=== PATIENT | female | born 1975 | race Caucasian/White ===

== ENCOUNTER 2024-01-28 18:47 | Emergency (ER) | payer OTHER, SELFPAY ==
[2024-01-28 19:07] VITALS: BP 146/101; PULSE 86; PULSE 88; RESP 16; TEMP 36.4; O2SAT 94; BMI 45.3
--- NOTE | 2024-01-28 19:16 | EKG12_ITS ---
Test Reason : CP Blood Pressure : / mmHG Vent. Rate : 085 BPM Atrial Rate : 085 BPM P-R Int : 158 ms QRS Dur : 084 ms QT Int : 404 ms P-R-T Axes : 057 -07 030 degrees QTc Int : 480 ms Normal sinus rhythm Cannot rule out Anterior infarct , age undetermined Abnormal ECG Confirmed by Ananda Reina ([id number]), editor magazine SUZI MORROW ([id number]) on 01/29/2024 10:14:43 AM Referred By: Tera Hodgson Confirmed By:Ananda Reina
[2024-01-28 19:51] LABS: Absolute Lymphocyte Count 3.48 X10^3/uL (0.83-4.51); Absolute Neutrophil Count 7.5 X10^3/uL (2.0-7.7); Basophil# 0.03 X10^3/uL; Basophil% 0.3 % (0-1); Eosinophil# 0.15 X10^3/uL; Eosinophils% 1.3 % (0-5); Hematocrit 43.1 % (37-47); Hemoglobin 14.5 g/dL (12.0-15.0); Lymphocyte # 3.48 X10^3/ul (0.83-4.51); Lymphocyte % 29.1 % (19-41); Mean Corp Hgb Conc 33.6 g/dL (32-36); Mean Corpuscular Hgb 29.5 pg (27.0-32.0); Mean Corpuscular Volume 87.6 fL (81-99); Mean Platelet Vol. 8.9 fl (6.2-12.0); Monocyte# 0.77 X10^3/uL; Monocyte% 6.4 % (0-10); NRBC Flagged by Analyzer 0 % (0-5); Neutrophil # 7.49 X10^3/uL (2.7-7.7); Neutrophil % 62.6 % (47-70); Platelet Count 390 K/mm3 (150-450); RBC Distribution Width CV 13.2 % (11.6-14.6); RBC Distribution Width SD 42.5 fl (35.1-43.9); Red Blood Count 4.92 M/mm3 (4.2-5.4)
--- NOTE | 2024-01-28 19:55 | RAD_ITS ---
EXAM: XR CHEST, 1 VIEW CLINICAL INDICATION: chest pain TECHNIQUE: Frontal view of the chest. COMPARISON: No relevant prior studies available. FINDINGS: LUNGS AND PLEURAL SPACES: No significant abnormality. No consolidation or edema. No pneumothorax. No effusion. HEART: No significant abnormality. Cardiac silhouette not enlarged. MEDIASTINUM: Central airways and mediastinal contour are unremarkable. BONES/JOINTS: No significant abnormality. No acute fracture. SOFT TISSUES: No significant abnormality. RAD/Chest 1 View (Portable) IMPRESSION: No radiographic evidence of acute cardiopulmonary disease. Electronically Signed: River Way DO at 20:11 EDT ,
[2024-01-28 20:11] LABS: Anion Gap 8 (5-15); BUN 12 mg/dL (7-18); BUN/Creat Ratio 11.7 RATIO (10-20); Calcium,Total 9.6 mg/dL (8.5-10.1); Chloride 102 mmol/L (98-107); Creatinine, Serum 1.03 mg/dL (0.55-1.02); EST Glomerular Filtration Rate 61 mL/min (>60); Est Glom Filt Rate - Afr Amer 74 mL/min (>60); Glucose 136 mg/dL (74-106); Sodium Level 141 mmol/L (136-145); Troponin-I HS (w/2H Reflex) 9 pg/mL (3.0-54.0)
--- NOTE | 2024-01-28 20:51 | EDS_ITS ---
HPI History of Present Illness Chief Complaint: Chest Pain Narrative Narrative: 48-year-old female past medical history of diabetes, hypertension, on hydrochlorothiazide presents with chest pain that began yesterday evening, greater than 6 hours ago. She describes it more like a toothache or a dull achy pain in the left side of her chest radiating towards her shoulder. She denies any exacerbating or alleviating factors. She might have mild nausea, but she recently started Mounjaro for her diabetes a few weeks ago which is one of the side effects. No vomiting, no shortness of breath or diaphoresis. She denies any DVT or PE risk factors, no leg swelling, no pleuritic component to her chest pain. She is concerned because she has family history of early coronary artery disease and states that her father in his 40s of a heart attack. She does not take control pills. PFSH PFSH Allergy/AdvReac Type Severity Reaction Status Date / Time codeine Allergy Intermediate itching Verified 01/28/24 19:09 meperidine (From Demerol) AdvReac Intermediate Nausea Verified 01/28/24 19:09 Social History Smoking Status: Never smoker ROS ROS ED ROS Narrative Constitutional: No fever, no chills. HEENT: No sore throat. No neck pain. No loss of vision. No rhinorrhea. Cardiovascular: Positive left-sided chest pain radiating to shoulder. No palpitations. No pedal edema. Respiratory: No cough, no shortness of breath. Abdominal: No abdominal pain. Possible nausea. No vomiting. Genitourinary: No dysuria. No hematuria. Musculoskeletal: No myalgias. No arthralgias. Neurologic: No headaches. No dizziness. No lightheadedness. Skin: No rash. No change in color. EXAM Physical Exam Narrative Exam Narrative: Afebrile. Vital signs noted. HEENT: Normocephalic. Atraumatic. PERRL, EOMI. Neck soft and supple. No point tenderness or step off. Cardiovascular: Regular rate and rhythm. No murmurs, rubs, or gallops appreciated. Respiratory: No tachypnea. Lungs clear to auscultation bilaterally. Gastrointestinal: Abdomen soft, nontender, with normoactive bowel sounds. No rebound or guarding. Neurological: Awake. Alert. Nonfocal, nonlateralizing. Skin: No rash. Normal color. No pallor. Musculoskeletal: No pedal edema. Full range of motion extremities. Const Vital Signs: 01/28/24 19:07 01/28/24 19:07 01/28/24 19:16 Temperature 97.5 F L Temperature Source Temporal Pulse Rate 88 86 Respiratory Rate 16 16 Blood Pressure 146/101 H 146/101 H Blood Pressure Mean 116 116 Pulse Ox 94 94 Oxygen Delivery Method Room Air Room Air Room Air 01/28/24 21:00 01/28/24 22:00 Temperature Temperature Source Pulse Rate 79 82 Respiratory Rate 16 19 H Blood Pressure 117/87 H 133/93 H Blood Pressure Mean 97 106 Pulse Ox 91 94 Oxygen Delivery Method Room Air Room Air Heart Score History: Slightly/Non-Suspicious ECG: Normal Age: >45 - <65 years Risk Factors: >/= 3 Risk Factors or History of CAD Troponin: </= Normal Limit Score: 3 MDM MDM MDM Narrative Medical decision making narrative: Differential diagnosis includes but not limited to ACS versus pneumonia versus pneumothorax versus pulmonary embolism. History and physical does not support pneumonia as she does not have fever or cough or shortness of breath. History and physical does not support pneumothorax as well. I have low suspicion for pulmonary embolism because she is PERC negative, she has a pulse less than 90 and pulse ox is 94% on room air without evidence of hypoxia. There is no pleuritic component to this. She was started on chest pain protocol. EKG was obtained and interpreted by myself independently as normal sinus rhythm at 85 bpm without ectopy or acute ST changes. No STEMI. Chest x-ray interpreted by myself independently shows no evidence of pneumothorax or pneumonia/consolidation. I reviewed the radiology report which confirms my independent interpretation. I reviewed her laboratory work and she has slightly elevated white count of 12.0 which I think is nonspecific, hemoglobin normal at 14.5, hematocrit 43.1, platelet count normal at 390. Sodium is normal at 141 but potassium slightly low at 3.0 which was replaced orally with 40 mill equivalents. She is on hydrochlorothiazide which I think is depleting her potassium. Glucose is elevated at 136, but she has normal anion gap of 8 so I doubt HHS or diabetic ketoacidosis. Creatinine 1.03. Initial high-sensitivity troponin is 9. I do not feel that she needs a D- dimer, but I do feel that although this is greater than a 6-hour troponin since her symptoms began yesterday that she could be ruled out with second troponin. She was reassured. Her review of her repeat troponin shows that is also 9 for a delta of 0. Repeat examination shows her resting comfortably on the cot at 10:30 PM and she is motivated for discharge. Return instructions reviewed. Disposition is discharged home in stable condition. History & Record Review Discussion w/independent historian: Patient Additional record(s) reviewed:: No prior records Lab Data Attestation: I reviewed the patient's lab results. Labs: Laboratory Results - last 24 hr 01/28/24 01/28/24 19:44 21:58 WBC 12.0 H RBC 4.92 Hgb 14.5 Hct 43.1 MCV 87.6 MCH 29.5 MCHC 33.6 RDW Std Deviation 42.5 RDW Coeff of Christina 13.2 Plt Count 390 MPV 8.9 Immature Gran % (Auto) 0.300 Neut % (Auto) 62.6 Lymph % (Auto) 29.1 [place] % (Auto) 6.4 Eos % (Auto) 1.3 Baso % (Auto) 0.3 Absolute Neuts (auto) 7.5 Absolute Lymphs (auto) 3.48 Nucleated RBC % 0 Sodium 141 Potassium 3.0 L Chloride 102 Carbon Dioxide 31.0 Anion Gap 8 BUN 12 Creatinine 1.03 H Estim Creat Clear Calc 86.00 Est GFR (MDRD) Af Amer 74 Est GFR (MDRD) Non-Af 61 BUN/Creatinine Ratio 11.7 Glucose 136 H Calcium 9.6 Troponin I High Sens 9 9 Radiography Diagnostic Testing: Clinical Impression(s) from Imaging Studies Chest X-Ray 01/28/24 19:55 IMPRESSION: No radiographic evidence of acute cardiopulmonary disease. Electronically Signed: River Way DO at 20:11 EDT , Discharge Plan Triage Chief Complaint: Chest Pain ED Provider: Tera Hodgson Dx/Rx/DC Orders Clinical Impression: Chest pain, Hypokalemia Instructions: ED Chest Pain, Uncertain Cause, ED Hypokalemia Primary Care Provider: Sylvester Fink Referrals: Sylvester Fink MD [Primary Care Provider] - 3-5 Days Activity Restrictions/Additional Instructions: Return with increased pain, new or worsening symptoms. Print Language: Slovenian Disposition Disposition: Home, Self Care
[2024-01-28 21:00] VITALS: BP 117/87; PULSE 79; RESP 16; O2SAT 91
[2024-01-28 21:48] LABS: Reflex Troponin-HS? (from REC) Y
[2024-01-28 22:00] VITALS: BP 133/93; PULSE 82; RESP 19; O2SAT 94
[2024-01-28] MEDS: Potassium Chloride Oral Tablet 20 MEQ 40 MEQ PO (22:04)
[2024-01-28 22:32] LABS: Troponin-I HS 9 pg/mL (3.0-54.0)
[2024-01-28 22:39] VITALS: BP 103/87; PULSE 84; RESP 12; TEMP 36.7; O2SAT 96
== END 2024-01-28 22:51 | disposition home or self-care (01) ==
PROVIDERS: Emergency Provider Emergency Medicine; PCP Family Medicine; Referring Provider Emergency Medicine; Visit Provider Emergency Medicine
DX: R07.9 Chest pain, unspecified (principal); E11.65 Type 2 diabetes mellitus with hyperglycemia; E87.6 Hypokalemia; I10 Essential (primary) hypertension; Z79.85 Long-term (current) use of injectable non-insulin antidiabetic drugs
CPT/HCPCS: 71045; 80048; 84484; 85025; 93005; 99284; A4216

== ENCOUNTER 2024-06-29 13:04 | Emergency (ER) | payer OTHER, SELFPAY ==
[2024-06-29 13:06] VITALS: BP 128/88; PULSE 84; RESP 20; TEMP 36.7; O2SAT 100; BMI 38.0
--- NOTE | 2024-06-29 13:15 | EX.ED.DYSGE1 ---
HPI <ILDA Velazquez - Last Filed: 06/29/24 14:47> History of Present Illness Chief Complaint: Cold Sx Narrative Narrative: 49-year-old female with past medical history of type 2 diabetes has had about 10 days of a general illness. It started with a fever, congestion and cough. She had multiple sick family members. Her fever has resolved but she continues to cough and last night had a significant coughing spell and was hyperventilating and then vomited. She continued to cough significantly this morning so presents for evaluation. She does not smoke. She denies history of asthma or COPD. PFS <ILDA Velazquez - Last Filed: 06/29/24 14:47> [facility] Medical History (Updated 06/29/24 @ 14:38 by ILDA Velazquez) Hyperlipemia delivery delivered Diabetes HTN (hypertension) Home Medications ?Medication ?Instructions ?Recorded ?Last Taken ?Type amiloride 5 mg tablet 5 mg PO DAILY 06/29/24 Unknown History atorvastatin 10 mg tablet 10 mg PO DAILY 06/29/24 Unknown History diltiazem HCl 360 mg capsule,24 360 mg PO DAILY 06/29/24 Unknown History hr,extended release estradiol 0.5 mg tablet 0.5 mg PO DAILY 06/29/24 Unknown History hydrochlorothiazide 50 mg tablet 50 mg PO DAILY 06/29/24 Unknown History metformin 500 mg tablet 500 mg PO BID 06/29/24 Unknown History tirzepatide 7.5 mg/0.5 mL 7.5 mg subcut .weekly 06/29/24 Unknown History subcutaneous pen injector (Mounjaro) Allergy/AdvReac Type Severity Reaction Status Date / Time codeine Allergy Intermediate itching Verified 06/29/24 13:06 SHERIE Inhibitors Allergy Other Verified 06/29/24 13:06 meperidine (From Demerol) AdvReac Intermediate Nausea Verified 06/29/24 13:06 Surgical History (Updated 06/29/24 @ 13:18 by Marie Lobo) Hx of cholecystectomy Social History (Updated 06/29/24 @ 13:18 by Marie Lobo) household members: significant other and children current occupational status: employed Smoking Status: Never smoker ROS <ILDA Velazquez - Last Filed: 06/29/24 14:47> ROS ED ROS Narrative Constitutional: Positive for fever, chills, malaise. CVS: Negative for chest pain. Respiratory: Positive for cough. GI: Negative for abdominal pain, diarrhea. EXAM <ILDA Velazquez - Last Filed: 06/29/24 14:47> Physical Exam Narrative Exam Narrative: CONST: Patient sitting in no acute distress. EYES: Normal inspection. NECK: Normal inspection. RESP: No respiratory distress, frequent cough, left lung base crackles. CVS: Regular rate and rhythm, no murmur, no gallop. SKIN: Color normal, no rash, warm, dry, intact. EXTREMITIES: Normal appearance, no pedal edema. NEURO: Alert and answering questions appropriately. PSYCH: Normal affect. Const Vital Signs: 06/29/24 13:06 Temperature 98.1 F Temperature Source Oral Pulse Rate 84 Respiratory Rate 20 H Blood Pressure 128/88 H Blood Pressure Mean 101 Pulse Ox 100 Oxygen Delivery Method Room Air <Dr. David Kim, DO - Last Filed: 06/29/24 15:39> Physical Exam Const Vital Signs: 06/29/24 13:06 Temperature 98.1 F Temperature Source Oral Pulse Rate 84 Respiratory Rate 20 H Blood Pressure 128/88 H Blood Pressure Mean 101 Pulse Ox 100 Oxygen Delivery Method Room Air MDM <ILDA Velazquez - Last Filed: 06/29/24 14:47> [facility] MDM Narrative Medical decision making narrative: Differential includes viral illness versus pneumonia 49-year-old female has had 10 days of cold symptoms. She has had multiple sick contacts. Last night had a coughing episode with hyperventilation and posttussive emesis. She appears well and nontoxic. Afebrile. Hemodynamically stable. She is speaking in full sentences in no distress but has a frequent cough. Left lung base has mild crackles. A chest x-ray was ordered to rule out pneumonia. At 10 days of illness I do not think a viral swab is indicated as it would not currency exchange specialist. CXR is negative. She was given an albuterol inhaler and I discussed symptomatic management at home. She was discharged in stable condition. Radiography Diagnostic Testing: Clinical Impression(s) from Imaging Studies Chest X-Ray 06/29/24 13:30 IMPRESSION: No radiographic evidence of acute cardiopulmonary disease Reading Location: [facility] ED attending interpretation of 2 view chest x-ray shows normal heart size, no acute infiltrate. <Dr. David Kim, DO - Last Filed: 06/29/24 15:39> MDM Radiography Diagnostic Testing: Clinical Impression(s) from Imaging Studies Chest X-Ray 06/29/24 13:30 IMPRESSION: No radiographic evidence of acute cardiopulmonary disease Reading Location: [facility] Treatment and Re-Evaluation :: I have personally performed a face to face assessment of the patient and have reviewed the ROSIE Note. I performed a substantive portion of the visit including all aspects of the following. My lainez findings include: History: Patient presents with cough that has been getting worse over the past 3 to 4 days. Patient states her breathing has been very shallow over this time. Patient states she feels short of breath. Patient denies any sputum production. Patient denies any fevers or chills. Patient states she has had some vomiting after coughing episodes. Patient also admits to some rhinorrhea. Exam: Vital signs are stable. Patient is afebrile. Patient is in no acute distress. Oral mucosa is pink and moist. Neck is supple. Trachea is midline. There is no JVD. Heart was regular rate and rhythm. Lungs are clear and equal bilaterally. There is good respiratory effort noted. Abdomen is soft. Bowel sounds are normal. There is no tenderness. Cranial nerves II through XII are intact. There are no focal motor or sensory deficits. Medical Decision Making: Differential diagnosis includes pneumonia, bronchitis, and viral upper respiratory infection. Chest x-ray will be obtained to assess for pneumonia. PA and lateral chest x-ray was obtained. There are 2 views. On my independent interpretation, lung polo are clear. There is normal cardiac silhouette. Bony thorax is normal. There is no acute process noted. Radiologist also interpreted the x-ray and agrees. Patient was advised of her findings. Patient was feeling better on reevaluation. Patient was given an albuterol inhaler. Patient was instructed to follow-up with her primary care physician in 5 to 7 days. Patient understood and was agreeable with the plan. All questions were answered. Discharge Plan Triage Chief Complaint: Cold Sx ED Midlevel Provider: Tigist Jimenez ED Provider: David Kim Dx/Rx/DC Orders Clinical Impression: Acute URI Instructions: ED URI, Viral, No Abx (Adult) Prescriptions: No Action atorvastatin 10 mg tablet 10 mg PO DAILY diltiazem HCl 360 mg capsule,extended release 24hr 360 mg PO DAILY amiloride 5 mg tablet 5 mg PO DAILY hydrochlorothiazide 50 mg tablet 50 mg PO DAILY estradiol 0.5 mg tablet 0.5 mg PO DAILY metformin 500 mg tablet 500 mg PO BID Mounjaro 7.5 mg/0.5 mL pen injector 7.5 mg subcut .weekly Primary Care Provider: Sylvester Fink Referrals: Sylvester Fink MD [Primary Care Provider] - Activity Restrictions/Additional Instructions: Your chest x-ray was negative for pneumonia. You can try [id number] cough medication and I prescribed an inhaler to use as needed for wheezing or shortness of breath. Follow-up with your primary care doctor if not improving Print Language: British Disposition Disposition: Home, Self Care
--- NOTE | 2024-06-29 13:30 | RAD_ITS ---
PROCEDURE: CHEST PA AND LATERAL REASON FOR EXAM: Cough TECHNIQUE: Frontal and lateral views of the chest. COMPARISON: 01/28/2024. FINDINGS: The heart size is normal. The mediastinal contour is unremarkable. The lungs are clear. The bones are unremarkable. RAD/Chest PA and Lateral IMPRESSION: No radiographic evidence of acute cardiopulmonary disease Reading Location: [facility]
[2024-06-29] MEDS: Albuterol Sulfate 8 gm Inhaler (60 puffs) 2 PUFF INHALATION (14:57)
== END 2024-06-29 15:04 | disposition home or self-care (01) ==
PROVIDERS: Emergency Provider Emergency Medicine; PCP Family Medicine; Visit Provider Emergency Medicine
DX: J06.9 Acute upper respiratory infection, unspecified (principal); E11.9 Type 2 diabetes mellitus without complications; I10 Essential (primary) hypertension; E78.5 Hyperlipidemia, unspecified; R11.10 Vomiting, unspecified; Z79.84 Long term (current) use of oral hypoglycemic drugs; Z79.85 Long-term (current) use of injectable non-insulin antidiabetic drugs; Z79.899 Other long term (current) drug therapy
CPT/HCPCS: 71046; 99282